=== PATIENT | female | born 1970 | race Caucasian/White ===

== ENCOUNTER 2020-12-10 13:50 | Inpatient (IN) ==
[2020-12-10] MEDS ORDERED: Naloxone 0.4 MG/ML INJ IVP PRN (19:07)
[2020-12-10] MEDS: Dexamethasone Sodium Phos/PF 10 MG/ML VIAL IVP SCH (20:27)
[2020-12-10] MEDS: Ipratropium 1 PUFF INHALER IH SCH (22:49)
[2020-12-10] MEDS: Gabapentin 300 MG CAPSULE PO SCH (23:30)
[2020-12-11 01:38] LABS: Basophils % 0.3 %; Hematocrit 37.3 % (35.3-44.9); Hemoglobin 12.8 g/dL (11.5-15.4); Immature Granulocytes % 1.3 % (0-4); Lymphocytes # 0.8 K/mcL (0.6-4.6); Mean Corpuscular HGB Conc 34.3 g/dL (31.6-35.5); Mean Corpuscular Hemoglobin 29.1 pg (28.0-33.3); Mean Corpuscular Volume 84.8 fL (83.0-100.0); Mean Platelet Volume 9.4 fL (9.4-12.4); Monocytes # 0.4 K/mcL (0.0-1.3); Monocytes % 3.8 %; Neutrophils # 8.3 K/mcL (1.6-8.9); Platelet Count 344 K/mcL (140-400); Red Cell Distribution Width 12.7 % (11.5-14.5); Segmented Neutrophils % 86.6 %; White Blood Count 9.6 K/mcL (4.3-11.1)
[2020-12-11 01:42] LABS: Albumin 3.3 g/dL (3.5-5.7); Bilirubin,Direct 0.1 mg/dL (0.0-0.2); Bilirubin,Indirect 0.3 mg/dL (0.0-1.0); Bilirubin,Total 0.4 mg/dL (0.3-1.0); Globulin 3.2 g/dL (2.4-3.5); Total Protein 6.5 g/dL (6.4-8.9)
[2020-12-11 01:43] LABS: BUN/Creatinine Ratio 18 (6-26); Blood Urea Nitrogen 11 mg/dL (6-20); Calcium 8.6 mg/dL (8.6-10.3); Carbon Dioxide 26 mEq/L (23-29); Chloride 94 mEq/L (98-107); Glucose 112 mg/dL (70-105); Magnesium 2.4 mg/dL (1.6-2.6); Osmolality,Calculated 274 (280-300); Potassium 3.7 mEq/L (3.5-5.1); Sodium 132 mEq/L (136-145); eGFR For African Americans > 60 (> 60); eGFR For Non-African Americans > 60 (> 60)
[2020-12-11] MEDS: Ipratropium 1 PUFF INHALER IH SCH ×4 (03:45→20:10)
[2020-12-11] MEDS ORDERED: *HR* Enoxaparin 40 MG/0.4 ML SYRINGE SQ SCH (06:00)
[2020-12-11] MEDS: Dexamethasone Sodium Phos/PF 10 MG/ML VIAL IVP SCH (07:59)
[2020-12-11] MEDS: BuPROPion XL (24 HR) 150 MG TABLET PO SCH (07:59)
[2020-12-11] MEDS: Gabapentin 300 MG CAPSULE PO SCH (08:00)
[2020-12-11] MEDS: Loratadine 10 MG TABLET PO SCH (08:56)
[2020-12-11] MEDS: Cholecalciferol (D-3) 1,000 UNIT (25MCG) TABLET PO SCH (08:57)
[2020-12-11] MEDS: *HR* Enoxaparin 40 MG/0.4 ML SYRINGE SQ SCH (16:30)
[2020-12-11] MEDS: levoFLOXacin 750 MG/150 ML 750 MG/150 ML BAG IVPB SCH (16:30)
[2020-12-11] MEDS: Furosemide 40 MG/4 ML VIAL IVP SCH (16:31)
[2020-12-12 02:28] LABS: Basophils % 0.5 %; Hematocrit 35.9 % (35.3-44.9); Hemoglobin 12.2 g/dL (11.5-15.4); Immature Granulocytes % 1.8 % (0-4); Lymphocytes # 0.6 K/mcL (0.6-4.6); Lymphocytes % 6.9 %; Mean Corpuscular Volume 85.5 fL (83.0-100.0); Mean Platelet Volume 9.1 fL (9.4-12.4); Monocytes # 0.4 K/mcL (0.0-1.3); Neutrophils # 7.2 K/mcL (1.6-8.9); Platelet Count 360 K/mcL (140-400); Red Cell Distribution Width 12.8 % (11.5-14.5); Segmented Neutrophils % 85.8 %; White Blood Count 8.4 K/mcL (4.3-11.1)
[2020-12-12 02:45] LABS: BUN/Creatinine Ratio 21 (6-26); Blood Urea Nitrogen 16 mg/dL (6-20); Calcium 8.6 mg/dL (8.6-10.3); Carbon Dioxide 31 mEq/L (23-29); Chloride 93 mEq/L (98-107); Glucose 116 mg/dL (70-105); Magnesium 2.2 mg/dL (1.6-2.6); Osmolality,Calculated 280 (280-300); Phosphorous 2.9 mg/dL (2.7-4.5); Potassium 3.3 mEq/L (3.5-5.1); Sodium 134 mEq/L (136-145); eGFR For African Americans > 60 (> 60); eGFR For Non-African Americans > 60 (> 60)
[2020-12-12] MEDS: Ipratropium 1 PUFF INHALER IH SCH ×4 (03:33→20:31)
[2020-12-12] MEDS: *HR* Enoxaparin 40 MG/0.4 ML SYRINGE SQ SCH ×2 (05:47→17:37)
[2020-12-12] MEDS ORDERED: tiZANidine 4 MG TABLET PO PRN (07:24)
[2020-12-12] MEDS: Gabapentin 300 MG CAPSULE PO SCH (09:31)
[2020-12-12] MEDS: Cholecalciferol (D-3) 1,000 UNIT (25MCG) TABLET PO SCH (09:31)
[2020-12-12] MEDS: Furosemide 40 MG/4 ML VIAL IVP SCH (09:31)
[2020-12-12] MEDS: BuPROPion XL (24 HR) 150 MG TABLET PO SCH (09:32)
[2020-12-12] MEDS: Loratadine 10 MG TABLET PO SCH (09:32)
[2020-12-12] MEDS: AZELASTINE HCL OP SCH ×2 (10:10→19:43)
[2020-12-12] MEDS: levoFLOXacin 750 MG/150 ML 750 MG/150 ML BAG IVPB SCH (17:38)
[2020-12-13 02:55] LABS: Basophils % 0.4 %; Hematocrit 36.6 % (35.3-44.9); Hemoglobin 12.2 g/dL (11.5-15.4); Immature Granulocytes % 2.3 % (0-4); Lymphocytes # 1.1 K/mcL (0.6-4.6); Lymphocytes % 14.6 %; Mean Corpuscular HGB Conc 33.3 g/dL (31.6-35.5); Mean Corpuscular Hemoglobin 28.4 pg (28.0-33.3); Mean Corpuscular Volume 85.1 fL (83.0-100.0); Mean Platelet Volume 8.9 fL (9.4-12.4); Monocytes # 0.2 K/mcL (0.0-1.3); Monocytes % 3.1 %; Platelet Count 381 K/mcL (140-400); Red Cell Distribution Width 12.8 % (11.5-14.5); Segmented Neutrophils % 79.6 %; White Blood Count 7.5 K/mcL (4.3-11.1)
[2020-12-13 03:11] LABS: BUN/Creatinine Ratio 19 (6-26); Blood Urea Nitrogen 13 mg/dL (6-20); Calcium 8.4 mg/dL (8.6-10.3); Carbon Dioxide 33 mEq/L (23-29); Chloride 93 mEq/L (98-107); Glucose 102 mg/dL (70-105); Magnesium 2.1 mg/dL (1.6-2.6); Osmolality,Calculated 282 (280-300); Potassium 3.5 mEq/L (3.5-5.1); Sodium 136 mEq/L (136-145); eGFR For African Americans > 60 (> 60); eGFR For Non-African Americans > 60 (> 60)
[2020-12-13] MEDS: Ipratropium 1 PUFF INHALER IH SCH ×4 (04:10→21:20)
[2020-12-13] MEDS: *HR* Enoxaparin 40 MG/0.4 ML SYRINGE SQ SCH ×2 (04:55→18:46)
[2020-12-13] MEDS: Furosemide 40 MG/4 ML VIAL IVP SCH (10:26)
[2020-12-13] MEDS: BuPROPion XL (24 HR) 150 MG TABLET PO SCH (10:26)
[2020-12-13] MEDS: Cholecalciferol (D-3) 1,000 UNIT (25MCG) TABLET PO SCH (10:27)
[2020-12-13] MEDS: Loratadine 10 MG TABLET PO SCH (10:27)
[2020-12-13] MEDS: AZELASTINE HCL OP SCH ×2 (10:27→22:03)
[2020-12-13] MEDS: Gabapentin 300 MG CAPSULE PO SCH (10:27)
[2020-12-13] MEDS: levoFLOXacin 750 MG/150 ML 750 MG/150 ML BAG IVPB SCH (18:45)
[2020-12-14] MEDS: Ipratropium 1 PUFF INHALER IH SCH ×4 (04:19→19:55)
[2020-12-14 05:14] LABS: Basophils % 0.3 %; Eosinophils % 0.2 %; Hematocrit 37.5 % (35.3-44.9); Hemoglobin 12.6 g/dL (11.5-15.4); Immature Granulocytes % 2.3 % (0-4); Lymphocytes # 1.1 K/mcL (0.6-4.6); Lymphocytes % 11.7 %; Mean Corpuscular HGB Conc 33.6 g/dL (31.6-35.5); Mean Corpuscular Volume 86.2 fL (83.0-100.0); Mean Platelet Volume 9.1 fL (9.4-12.4); Monocytes # 0.2 K/mcL (0.0-1.3); Monocytes % 1.8 %; Neutrophils # 7.9 K/mcL (1.6-8.9); Platelet Count 325 K/mcL (140-400); Red Blood Count 4.35 M/mcL (3.82-4.97); Red Cell Distribution Width 12.7 % (11.5-14.5); Segmented Neutrophils % 83.7 %; White Blood Count 9.4 K/mcL (4.3-11.1)
[2020-12-14 05:33] LABS: BUN/Creatinine Ratio 23 (6-26); Blood Urea Nitrogen 15 mg/dL (6-20); Calcium 8.4 mg/dL (8.6-10.3); Carbon Dioxide 32 mEq/L (23-29); Chloride 91 mEq/L (98-107); Glucose 92 mg/dL (70-105); Osmolality,Calculated 278 (280-300); Phosphorous 2.6 mg/dL (2.7-4.5); Potassium 3.4 mEq/L (3.5-5.1); Sodium 134 mEq/L (136-145); eGFR For African Americans > 60 (> 60); eGFR For Non-African Americans > 60 (> 60)
[2020-12-14] MEDS: *HR* Enoxaparin 40 MG/0.4 ML SYRINGE SQ SCH (06:59)
[2020-12-14] MEDS ORDERED: *HR* Heparin 5,000 UNIT/ML VIAL IVP PRN (08:18)
[2020-12-14] MEDS ORDERED: *HR* Heparin 5,000 UNIT/ML VIAL IVP ONE (08:18)
[2020-12-14] MEDS: BuPROPion XL (24 HR) 150 MG TABLET PO SCH (08:36)
[2020-12-14] MEDS: Furosemide 40 MG/4 ML VIAL IVP SCH (08:36)
[2020-12-14] MEDS: Gabapentin 300 MG CAPSULE PO SCH (08:36)
[2020-12-14] MEDS: Cholecalciferol (D-3) 1,000 UNIT (25MCG) TABLET PO SCH (08:37)
[2020-12-14] MEDS: Loratadine 10 MG TABLET PO SCH (08:37)
[2020-12-14] MEDS: AZELASTINE HCL OP SCH ×2 (08:37→20:50)
[2020-12-14 08:49] LABS: ABG Base Excess 10 mEq/L (-2 to 3); ABG HCO3 33 mEq/L (21-27); ABG Oxygen Saturation 84 % (95-98); ABG PCO2 38 mmHg (35-45); ABG PH 7.55 pH Units (7.32-7.45); ABG PO2 42 mmHg (85-104); ABG TCO2 34 mEq/L (20-26)
[2020-12-14 10:16] LABS: Hemoglobin 13.6 g/dL (11.5-15.4); Mean Corpuscular Hemoglobin 29.3 pg (28.0-33.3); Mean Corpuscular Volume 86.2 fL (83.0-100.0); Mean Platelet Volume 9.1 fL (9.4-12.4); Platelet Count 383 K/mcL (140-400); Red Blood Count 4.64 M/mcL (3.82-4.97); Red Cell Distribution Width 12.8 % (11.5-14.5); White Blood Count 12.3 K/mcL (4.3-11.1)
[2020-12-14 10:24] LABS: Heparin anti-factor XA UFH 0.24 IU/mL (0.30-0.70)
[2020-12-14 10:25] LABS: INR 1.4; Prothrombin Time 15.5 Seconds (9.4-12.1)
[2020-12-14] MEDS: Pantoprazole 40 MG VIAL IVP SCH ×2 (10:42→10:56)
[2020-12-14] MEDS: Heparin 25,000UNIT/250ML 1/2NS 25,000 UNIT/250 ML IV.SOLN IVC SCH (10:43)
[2020-12-14 15:46] LABS: ABG Base Excess 11 mEq/L (-2 to 3); ABG HCO3 35 mEq/L (21-27); ABG Oxygen Saturation 87 % (95-98); ABG PCO2 43 mmHg (35-45); ABG PH 7.52 pH Units (7.32-7.45); ABG PO2 48 mmHg (85-104); ABG TCO2 36 mEq/L (20-26)
[2020-12-14] MEDS ORDERED: Morphine Sulfate 2 MG/ML SYRINGE IVP ONE (15:46)
[2020-12-14] MEDS: levoFLOXacin 750 MG/150 ML 750 MG/150 ML BAG IVPB SCH (16:25)
[2020-12-15] MEDS: Morphine Sulfate 2 MG/ML SYRINGE IVP PRN ×4 (01:20→22:12)
[2020-12-15] MEDS: Ipratropium 1 PUFF INHALER IH SCH ×4 (03:50→20:10)
[2020-12-15 04:54] LABS: Basophils % 0.3 %; Eosinophils # 0.1 K/mcL (0.0-0.6); Eosinophils % 0.5 %; Hematocrit 37.7 % (35.3-44.9); Hemoglobin 12.5 g/dL (11.5-15.4); Immature Granulocytes % 3.5 % (0-4); Lymphocytes # 1.4 K/mcL (0.6-4.6); Lymphocytes % 11.3 %; Mean Corpuscular HGB Conc 33.2 g/dL (31.6-35.5); Mean Corpuscular Hemoglobin 28.8 pg (28.0-33.3); Mean Corpuscular Volume 86.9 fL (83.0-100.0); Mean Platelet Volume 9.3 fL (9.4-12.4); Monocytes # 0.3 K/mcL (0.0-1.3); Monocytes % 2.3 %; Platelet Count 368 K/mcL (140-400); Red Blood Count 4.34 M/mcL (3.82-4.97); Red Cell Distribution Width 12.6 % (11.5-14.5); Segmented Neutrophils % 82.1 %; White Blood Count 12.2 K/mcL (4.3-11.1)
[2020-12-15 05:13] LABS: BUN/Creatinine Ratio 25 (6-26); Blood Urea Nitrogen 17 mg/dL (6-20); Calcium 8.5 mg/dL (8.6-10.3); Carbon Dioxide 34 mEq/L (23-29); Chloride 90 mEq/L (98-107); Glucose 77 mg/dL (70-105); Magnesium 2.1 mg/dL (1.6-2.6); Osmolality,Calculated 280 (280-300); Potassium 3.2 mEq/L (3.5-5.1); Sodium 135 mEq/L (136-145); eGFR For African Americans > 60 (> 60); eGFR For Non-African Americans > 60 (> 60)
[2020-12-15] MEDS: Cholecalciferol (D-3) 1,000 UNIT (25MCG) TABLET PO SCH (07:30)
[2020-12-15] MEDS: Gabapentin 300 MG CAPSULE PO SCH (07:30)
[2020-12-15] MEDS: Loratadine 10 MG TABLET PO SCH (07:30)
[2020-12-15] MEDS: AZELASTINE HCL OP SCH (07:30)
[2020-12-15] MEDS: BuPROPion XL (24 HR) 150 MG TABLET PO SCH (07:30)
[2020-12-15] MEDS: Pantoprazole 40 MG VIAL IVP SCH (09:08)
[2020-12-15] MEDS: Furosemide 40 MG/4 ML VIAL IVP SCH (09:09)
[2020-12-15] MEDS: Heparin 25,000UNIT/250ML 1/2NS 25,000 UNIT/250 ML IV.SOLN IVC SCH (10:02)
[2020-12-15] MEDS: levoFLOXacin 750 MG/150 ML 750 MG/150 ML BAG IVPB SCH (18:13)
[2020-12-15] MEDS: Melatonin 3 MG TABLET PO PRN (22:13)
[2020-12-15] MEDS: *HR* Heparin 5,000 UNIT/ML VIAL IVP PRN (23:29)
[2020-12-16] MEDS: Morphine Sulfate 2 MG/ML SYRINGE IVP PRN ×2 (02:22→06:32)
[2020-12-16] MEDS: Ipratropium 1 PUFF INHALER IH SCH ×4 (03:45→21:43)
[2020-12-16] MEDS: Heparin 25,000UNIT/250ML 1/2NS 25,000 UNIT/250 ML IV.SOLN IVC SCH ×2 (04:10→20:32)
[2020-12-16 06:08] LABS: Basophils % 0.3 %; Eosinophils # 0.2 K/mcL (0.0-0.6); Eosinophils % 1.5 %; Hematocrit 40.3 % (35.3-44.9); Hemoglobin 13.7 g/dL (11.5-15.4); Immature Granulocytes % 2.1 % (0-4); Lymphocytes # 1.4 K/mcL (0.6-4.6); Lymphocytes % 9.6 %; Mean Corpuscular Hemoglobin 29.5 pg (28.0-33.3); Mean Corpuscular Volume 86.7 fL (83.0-100.0); Mean Platelet Volume 9.4 fL (9.4-12.4); Monocytes # 0.3 K/mcL (0.0-1.3); Neutrophils # 12.5 K/mcL (1.6-8.9); Platelet Count 419 K/mcL (140-400); Red Blood Count 4.65 M/mcL (3.82-4.97); Red Cell Distribution Width 12.9 % (11.5-14.5); Segmented Neutrophils % 84.5 %; White Blood Count 14.7 K/mcL (4.3-11.1)
[2020-12-16 06:24] LABS: BUN/Creatinine Ratio 27 (6-26); Blood Urea Nitrogen 18 mg/dL (6-20); Calcium 8.8 mg/dL (8.6-10.3); Carbon Dioxide 32 mEq/L (23-29); Chloride 91 mEq/L (98-107); Glucose 81 mg/dL (70-105); Magnesium 2.2 mg/dL (1.6-2.6); Osmolality,Calculated 281 (280-300); Phosphorous 3.3 mg/dL (2.7-4.5); Potassium 3.3 mEq/L (3.5-5.1); Sodium 135 mEq/L (136-145); eGFR For African Americans > 60 (> 60); eGFR For Non-African Americans > 60 (> 60)
[2020-12-16] MEDS: Pantoprazole 40 MG VIAL IVP SCH (08:43)
[2020-12-16] MEDS: Furosemide 40 MG/4 ML VIAL IVP SCH (08:43)
[2020-12-16] MEDS: Dexamethasone Sodium Phos/PF 10 MG/ML VIAL IVP SCH (08:43)
[2020-12-16] MEDS: Loratadine 10 MG TABLET PO SCH (08:48)
[2020-12-16] MEDS: BuPROPion XL (24 HR) 150 MG TABLET PO SCH (08:48)
[2020-12-16] MEDS: Gabapentin 300 MG CAPSULE PO SCH (08:48)
[2020-12-16] MEDS: Cholecalciferol (D-3) 1,000 UNIT (25MCG) TABLET PO SCH (08:48)
[2020-12-16] MEDS: Metoprolol XL (24 HR) Succ 25 MG TAB.ER.24H PO SCH (08:53)
[2020-12-16] MEDS: *HR* Heparin 5,000 UNIT/ML VIAL IVP PRN (13:23)
[2020-12-16 13:33] LABS: ABG Base Excess 8 mEq/L (-2 to 3); ABG HCO3 31 mEq/L (21-27); ABG Oxygen Saturation 96 % (95-98); ABG PCO2 38 mmHg (35-45); ABG PH 7.52 pH Units (7.32-7.45); ABG PO2 73 mmHg (85-104); ABG TCO2 32 mEq/L (20-26); Blood Gas Modality CPAP/PS; Blood Gas Pressure Support 12 cm H2O
[2020-12-16] MEDS: levoFLOXacin 750 MG/150 ML 750 MG/150 ML BAG IVPB SCH (17:43)
[2020-12-17 01:49] LABS: Basophils # 0.1 K/mcL (0.0-0.2); Basophils % 0.4 %; Eosinophils % 0.1 %; Hematocrit 39.1 % (35.3-44.9); Hemoglobin 13.3 g/dL (11.5-15.4); Immature Granulocytes % 2.5 % (0-4); Lymphocytes # 1.7 K/mcL (0.6-4.6); Lymphocytes % 10.4 %; Mean Corpuscular Hemoglobin 29.6 pg (28.0-33.3); Mean Corpuscular Volume 86.9 fL (83.0-100.0); Mean Platelet Volume 9.6 fL (9.4-12.4); Monocytes # 0.3 K/mcL (0.0-1.3); Monocytes % 1.7 %; Neutrophils # 14.1 K/mcL (1.6-8.9); Platelet Count 418 K/mcL (140-400); Red Cell Distribution Width 12.8 % (11.5-14.5); Segmented Neutrophils % 84.9 %; White Blood Count 16.6 K/mcL (4.3-11.1)
[2020-12-17 01:54] LABS: BUN/Creatinine Ratio 36 (6-26); Blood Urea Nitrogen 26 mg/dL (6-20); Calcium 8.9 mg/dL (8.6-10.3); Carbon Dioxide 28 mEq/L (23-29); Chloride 91 mEq/L (98-107); Glucose 119 mg/dL (70-105); Magnesium 1.9 mg/dL (1.6-2.6); Osmolality,Calculated 278 (280-300); Potassium 3.4 mEq/L (3.5-5.1); Sodium 131 mEq/L (136-145); eGFR For African Americans > 60 (> 60); eGFR For Non-African Americans > 60 (> 60)
[2020-12-17] MEDS: Ipratropium 1 PUFF INHALER IH SCH ×4 (03:48→20:24)
[2020-12-17] MEDS: Morphine Sulfate 2 MG/ML SYRINGE IVP PRN (06:17)
[2020-12-17] MEDS: Loratadine 10 MG TABLET PO SCH (07:55)
[2020-12-17] MEDS: BuPROPion XL (24 HR) 150 MG TABLET PO SCH (07:55)
[2020-12-17] MEDS: Metoprolol XL (24 HR) Succ 25 MG TAB.ER.24H PO SCH (07:55)
[2020-12-17] MEDS: Cholecalciferol (D-3) 1,000 UNIT (25MCG) TABLET PO SCH (07:55)
[2020-12-17] MEDS: Gabapentin 300 MG CAPSULE PO SCH (07:55)
[2020-12-17] MEDS: Dexamethasone Sodium Phos/PF 10 MG/ML VIAL IVP SCH (07:56)
[2020-12-17] MEDS: Pantoprazole 40 MG VIAL IVP SCH (07:56)
[2020-12-17] MEDS: Furosemide 40 MG/4 ML VIAL IVP SCH (07:56)
[2020-12-17] MEDS ORDERED: Isovue-370 500 ML BOTTLE IVP ONE (08:21)
[2020-12-17] MEDS: Heparin 25,000UNIT/250ML 1/2NS 25,000 UNIT/250 ML IV.SOLN IVC SCH (10:57)
[2020-12-17] MEDS: levoFLOXacin 750 MG/150 ML 750 MG/150 ML BAG IVPB SCH (16:49)
[2020-12-18] MEDS ORDERED: *HR* LORazepam 2 MG/ML VIAL IVP ONE (02:32)
[2020-12-18 02:40] LABS: Basophils # 0.1 K/mcL (0.0-0.2); Basophils % 0.4 %; Eosinophils % 0.1 %; Hematocrit 39.3 % (35.3-44.9); Hemoglobin 13.1 g/dL (11.5-15.4); Immature Granulocytes % 2.7 % (0-4); Lymphocytes # 2.3 K/mcL (0.6-4.6); Lymphocytes % 11.7 %; Mean Corpuscular HGB Conc 33.3 g/dL (31.6-35.5); Mean Corpuscular Hemoglobin 28.9 pg (28.0-33.3); Mean Corpuscular Volume 86.8 fL (83.0-100.0); Mean Platelet Volume 9.7 fL (9.4-12.4); Monocytes # 0.4 K/mcL (0.0-1.3); Monocytes % 1.8 %; Neutrophils # 16.3 K/mcL (1.6-8.9); Platelet Count 358 K/mcL (140-400); Red Blood Count 4.53 M/mcL (3.82-4.97); Red Cell Distribution Width 12.8 % (11.5-14.5); Segmented Neutrophils % 83.3 %; White Blood Count 19.5 K/mcL (4.3-11.1)
[2020-12-18 02:52] LABS: Fibrinogen 683 mg/dL (169-393)
[2020-12-18 02:56] LABS: D-Dimer 2313 ng/mLFEU (0-500)
[2020-12-18 03:01] LABS: Alanine Aminotransferase 14 Units/L (7-52); Alkaline Phosphatase 74 Units/L (34-104); Aspartate Amino Transferase 20 Units/L (13-39); BUN/Creatinine Ratio 31 (6-26); Bilirubin,Total 0.6 mg/dL (0.3-1.0); Blood Urea Nitrogen 23 mg/dL (6-20); Carbon Dioxide 30 mEq/L (23-29); Chloride 94 mEq/L (98-107); Globulin 3.1 g/dL (2.4-3.5); Glucose 100 mg/dL (70-105); Lactate Dehydrogenase 647 Units/L (140-271); Magnesium 1.9 mg/dL (1.6-2.6); Osmolality,Calculated 282 (280-300); Phosphorous 3.5 mg/dL (2.7-4.5); Potassium 3.5 mEq/L (3.5-5.1); Sodium 134 mEq/L (136-145); Total Protein 6.1 g/dL (6.4-8.9); eGFR For African Americans > 60 (> 60); eGFR For Non-African Americans > 60 (> 60)
[2020-12-18] MEDS: Heparin 25,000UNIT/250ML 1/2NS 25,000 UNIT/250 ML IV.SOLN IVC SCH ×2 (03:09→13:16)
[2020-12-18] MEDS: *HR* Heparin 5,000 UNIT/ML VIAL IVP PRN (03:11)
[2020-12-18 03:18] LABS: Ferritin 585 ng/mL (10-120)
[2020-12-18] MEDS: Ipratropium 1 PUFF INHALER IH SCH ×4 (04:08→19:43)
[2020-12-18] MEDS ORDERED: Furosemide 20 MG TABLET PO SCH (09:00)
[2020-12-18] MEDS: Pantoprazole 40 MG VIAL IVP SCH (10:18)
[2020-12-18] MEDS: Dexamethasone Sodium Phos/PF 10 MG/ML VIAL IVP SCH (10:19)
[2020-12-18] MEDS: Metoprolol XL (24 HR) Succ 50 MG TAB.ER.24H PO SCH (10:23)
[2020-12-18] MEDS: Cholecalciferol (D-3) 1,000 UNIT (25MCG) TABLET PO SCH (10:23)
[2020-12-18] MEDS: Gabapentin 300 MG CAPSULE PO SCH (10:23)
[2020-12-18] MEDS: BuPROPion XL (24 HR) 150 MG TABLET PO SCH (10:23)
[2020-12-18] MEDS: Loratadine 10 MG TABLET PO SCH (10:23)
[2020-12-18] MEDS: Morphine Sulfate 2 MG/ML SYRINGE IVP PRN ×2 (11:31→21:57)
[2020-12-18] MEDS: Furosemide 20 MG/2 ML VIAL IVP SCH (16:18)
[2020-12-18] MEDS: *HR* Enoxaparin 40 MG/0.4 ML SYRINGE SQ SCH (21:52)
[2020-12-19] MEDS: Ipratropium 1 PUFF INHALER IH SCH ×4 (04:00→20:33)
[2020-12-19] MEDS: Morphine Sulfate 2 MG/ML SYRINGE IVP PRN ×3 (04:11→22:32)
[2020-12-19 05:05] LABS: Basophils % 0.2 %; Eosinophils % 0.1 %; Hematocrit 37.4 % (35.3-44.9); Hemoglobin 12.7 g/dL (11.5-15.4); Immature Granulocytes % 2.3 % (0-4); Lymphocytes % 11.4 %; Mean Corpuscular Hemoglobin 29.6 pg (28.0-33.3); Mean Corpuscular Volume 87.2 fL (83.0-100.0); Mean Platelet Volume 9.9 fL (9.4-12.4); Monocytes # 0.3 K/mcL (0.0-1.3); Neutrophils # 14.5 K/mcL (1.6-8.9); Platelet Count 339 K/mcL (140-400); Red Blood Count 4.29 M/mcL (3.82-4.97); Red Cell Distribution Width 13.1 % (11.5-14.5); White Blood Count 17.2 K/mcL (4.3-11.1)
[2020-12-19 05:28] LABS: BUN/Creatinine Ratio 32 (6-26); Blood Urea Nitrogen 22 mg/dL (6-20); Calcium 9.1 mg/dL (8.6-10.3); Carbon Dioxide 30 mEq/L (23-29); Chloride 97 mEq/L (98-107); Glucose 105 mg/dL (70-105); Magnesium 2.1 mg/dL (1.6-2.6); Osmolality,Calculated 288 (280-300); Phosphorous 3.9 mg/dL (2.7-4.5); Potassium 3.8 mEq/L (3.5-5.1); Sodium 137 mEq/L (136-145); eGFR For African Americans > 60 (> 60); eGFR For Non-African Americans > 60 (> 60)
[2020-12-19] MEDS: Furosemide 20 MG/2 ML VIAL IVP SCH (09:42)
[2020-12-19] MEDS: BuPROPion XL (24 HR) 150 MG TABLET PO SCH (09:42)
[2020-12-19] MEDS: Loratadine 10 MG TABLET PO SCH (09:43)
[2020-12-19] MEDS: *HR* Enoxaparin 40 MG/0.4 ML SYRINGE SQ SCH ×2 (09:43→22:31)
[2020-12-19] MEDS: Cholecalciferol (D-3) 1,000 UNIT (25MCG) TABLET PO SCH (09:43)
[2020-12-19] MEDS: Gabapentin 300 MG CAPSULE PO SCH (09:43)
[2020-12-19] MEDS: Metoprolol XL (24 HR) Succ 50 MG TAB.ER.24H PO SCH (09:43)
[2020-12-19] MEDS: Dexamethasone Sodium Phos/PF 10 MG/ML VIAL IVP SCH (09:43)
[2020-12-19] MEDS: Pantoprazole 40 MG VIAL IVP SCH (09:43)
[2020-12-19] MEDS: ALPRAZolam 0.25 MG TABLET PO PRN (11:15)
[2020-12-19] MEDS: Magic Mouthwash 10 ML UD Cup PO SCH ×2 (11:16→19:50)
[2020-12-20] MEDS: ALPRAZolam 0.25 MG TABLET PO PRN ×2 (01:39→20:34)
[2020-12-20] MEDS: Morphine Sulfate 2 MG/ML SYRINGE IVP PRN ×3 (02:41→16:28)
[2020-12-20] MEDS: Ipratropium 1 PUFF INHALER IH SCH ×4 (04:12→20:33)
[2020-12-20 06:39] LABS: Basophils # 0.1 K/mcL (0.0-0.2); Basophils % 0.3 %; Eosinophils # 0.1 K/mcL (0.0-0.6); Eosinophils % 0.2 %; Hematocrit 38.7 % (35.3-44.9); Hemoglobin 12.8 g/dL (11.5-15.4); Immature Granulocytes % 1.3 % (0-4); Lymphocytes # 1.9 K/mcL (0.6-4.6); Mean Corpuscular HGB Conc 33.1 g/dL (31.6-35.5); Mean Corpuscular Hemoglobin 29.1 pg (28.0-33.3); Mean Platelet Volume 9.9 fL (9.4-12.4); Monocytes # 0.4 K/mcL (0.0-1.3); Monocytes % 1.7 %; Platelet Count 314 K/mcL (140-400); Red Cell Distribution Width 13.2 % (11.5-14.5); Segmented Neutrophils % 88.5 %; White Blood Count 23.8 K/mcL (4.3-11.1)
[2020-12-20 06:42] LABS: Neutrophils # 21.1 K/mcL (1.6-8.9)
[2020-12-20 06:54] LABS: Platelet Estimate Normal (Normal)
[2020-12-20 07:01] LABS: BUN/Creatinine Ratio 33 (6-26); Blood Urea Nitrogen 22 mg/dL (6-20); Calcium 9.1 mg/dL (8.6-10.3); Carbon Dioxide 32 mEq/L (23-29); Chloride 98 mEq/L (98-107); Glucose 92 mg/dL (70-105); Lactate Dehydrogenase 794 Units/L (140-271); Magnesium 1.9 mg/dL (1.6-2.6); Osmolality,Calculated 289 (280-300); Phosphorous 3.5 mg/dL (2.7-4.5); Potassium 4.2 mEq/L (3.5-5.1); Sodium 138 mEq/L (136-145); eGFR For African Americans > 60 (> 60); eGFR For Non-African Americans > 60 (> 60)
[2020-12-20 07:19] LABS: Ferritin 528 ng/mL (10-120)
[2020-12-20] MEDS: Gabapentin 300 MG CAPSULE PO SCH (08:49)
[2020-12-20] MEDS: Metoprolol XL (24 HR) Succ 50 MG TAB.ER.24H PO SCH (08:50)
[2020-12-20] MEDS: Dexamethasone Sodium Phos/PF 10 MG/ML VIAL IVP SCH (08:50)
[2020-12-20] MEDS: Furosemide 20 MG/2 ML VIAL IVP SCH (08:50)
[2020-12-20] MEDS: Loratadine 10 MG TABLET PO SCH (08:50)
[2020-12-20] MEDS: BuPROPion XL (24 HR) 150 MG TABLET PO SCH (08:50)
[2020-12-20] MEDS: Cholecalciferol (D-3) 1,000 UNIT (25MCG) TABLET PO SCH (08:50)
[2020-12-20] MEDS: *HR* Enoxaparin 40 MG/0.4 ML SYRINGE SQ SCH ×2 (08:51→20:37)
[2020-12-20] MEDS: Pantoprazole 40 MG VIAL IVP SCH (08:51)
[2020-12-20] MEDS: Magic Mouthwash 10 ML UD Cup PO SCH ×3 (08:51→16:29)
[2020-12-20] MEDS: GuaiFENesin/Dextromethorphan TABLET PO PRN (13:19)
[2020-12-20] MEDS: Melatonin 3 MG TABLET PO PRN (20:34)
[2020-12-21] MEDS: GuaiFENesin/Dextromethorphan TABLET PO PRN ×2 (02:30→20:59)
[2020-12-21] MEDS: Ipratropium 1 PUFF INHALER IH SCH ×4 (03:42→20:12)
[2020-12-21] MEDS: Morphine Sulfate 2 MG/ML SYRINGE IVP PRN ×2 (04:00→08:52)
[2020-12-21] MEDS: Cholecalciferol (D-3) 1,000 UNIT (25MCG) TABLET PO SCH (08:48)
[2020-12-21] MEDS: Gabapentin 300 MG CAPSULE PO SCH (08:48)
[2020-12-21] MEDS: ALPRAZolam 0.25 MG TABLET PO PRN (08:48)
[2020-12-21] MEDS: Loratadine 10 MG TABLET PO SCH (08:48)
[2020-12-21] MEDS: Metoprolol XL (24 HR) Succ 50 MG TAB.ER.24H PO SCH (08:49)
[2020-12-21] MEDS: BuPROPion XL (24 HR) 150 MG TABLET PO SCH (08:49)
[2020-12-21] MEDS: *HR* Enoxaparin 40 MG/0.4 ML SYRINGE SQ SCH ×2 (08:50→21:00)
[2020-12-21] MEDS: Furosemide 20 MG/2 ML VIAL IVP SCH (08:50)
[2020-12-21] MEDS: Pantoprazole 40 MG VIAL IVP SCH (08:51)
[2020-12-21] MEDS: Magic Mouthwash 10 ML UD Cup PO SCH ×3 (08:54→17:24)
[2020-12-21 10:30] LABS: Magnesium 1.9 mg/dL (1.6-2.6); Phosphorous 3.9 mg/dL (2.7-4.5)
[2020-12-21 15:08] LABS: Basophils # 0.1 K/mcL (0.0-0.2); Basophils % 0.3 %; Eosinophils % 0.2 %; Hemoglobin 12.5 g/dL (11.5-15.4); Immature Granulocytes % 1.4 % (0-4); Lymphocytes % 5.1 %; Mean Corpuscular HGB Conc 32.9 g/dL (31.6-35.5); Mean Platelet Volume 9.9 fL (9.4-12.4); Monocytes # 0.2 K/mcL (0.0-1.3); Monocytes % 1.2 %; Neutrophils # 18.3 K/mcL (1.6-8.9); Platelet Count 265 K/mcL (140-400); Red Blood Count 4.31 M/mcL (3.82-4.97); Red Cell Distribution Width 13.3 % (11.5-14.5); Segmented Neutrophils % 91.8 %; White Blood Count 19.9 K/mcL (4.3-11.1)
[2020-12-21 15:10] LABS: Mean Corpuscular Volume 88.2 fL (83.0-100.0)
[2020-12-21] MEDS ORDERED: HYDROcodone BIT/Homatropine LQ 5 MG/5 ML UDC PO ONE (20:11)
[2020-12-21] MEDS: Melatonin 3 MG TABLET PO PRN (20:59)
[2020-12-22] MEDS: ALPRAZolam 0.25 MG TABLET PO PRN ×2 (01:59→09:39)
[2020-12-22] MEDS: Morphine Sulfate 2 MG/ML SYRINGE IVP PRN ×4 (01:59→21:15)
[2020-12-22] MEDS: Ipratropium 1 PUFF INHALER IH SCH ×4 (04:04→20:14)
[2020-12-22 05:44] LABS: Basophils # 0.1 K/mcL (0.0-0.2); Basophils % 0.4 %; Eosinophils # 0.1 K/mcL (0.0-0.6); Eosinophils % 0.6 %; Hematocrit 40.2 % (35.3-44.9); Hemoglobin 13.1 g/dL (11.5-15.4); Immature Granulocytes % 1.5 % (0-4); Lymphocytes # 1.9 K/mcL (0.6-4.6); Lymphocytes % 10.1 %; Mean Corpuscular HGB Conc 32.6 g/dL (31.6-35.5); Mean Corpuscular Hemoglobin 29.6 pg (28.0-33.3); Mean Corpuscular Volume 90.7 fL (83.0-100.0); Monocytes # 0.3 K/mcL (0.0-1.3); Monocytes % 1.7 %; Neutrophils # 16.3 K/mcL (1.6-8.9); Platelet Count 277 K/mcL (140-400); Red Blood Count 4.43 M/mcL (3.82-4.97); Red Cell Distribution Width 13.5 % (11.5-14.5); Segmented Neutrophils % 85.7 %; White Blood Count 19.1 K/mcL (4.3-11.1)
[2020-12-22 05:59] LABS: Alanine Aminotransferase 19 Units/L (7-52); Albumin 3.1 g/dL (3.5-5.7); Albumin/Globulin Ratio 0.9 (1.1-2.2); Alkaline Phosphatase 99 Units/L (34-104); Aspartate Amino Transferase 21 Units/L (13-39); BUN/Creatinine Ratio 38 (6-26); Bilirubin,Total 0.6 mg/dL (0.3-1.0); Blood Urea Nitrogen 29 mg/dL (6-20); Calcium 9.3 mg/dL (8.6-10.3); Carbon Dioxide 32 mEq/L (23-29); Chloride 96 mEq/L (98-107); Globulin 3.5 g/dL (2.4-3.5); Glucose 86 mg/dL (70-105); Osmolality,Calculated 289 (280-300); Potassium 4.8 mEq/L (3.5-5.1); Sodium 137 mEq/L (136-145); Total Protein 6.6 g/dL (6.4-8.9); eGFR For African Americans > 60 (> 60); eGFR For Non-African Americans > 60 (> 60)
[2020-12-22] MEDS: BuPROPion XL (24 HR) 150 MG TABLET PO SCH (09:39)
[2020-12-22] MEDS: *HR* Enoxaparin 40 MG/0.4 ML SYRINGE SQ SCH ×2 (09:39→21:15)
[2020-12-22] MEDS: GuaiFENesin/Dextromethorphan TABLET PO PRN (09:40)
[2020-12-22] MEDS: Metoprolol XL (24 HR) Succ 50 MG TAB.ER.24H PO SCH (09:40)
[2020-12-22] MEDS: Loratadine 10 MG TABLET PO SCH (09:40)
[2020-12-22] MEDS: Furosemide 20 MG/2 ML VIAL IVP SCH (09:40)
[2020-12-22] MEDS: Gabapentin 300 MG CAPSULE PO SCH (09:41)
[2020-12-22] MEDS: Pantoprazole 40 MG VIAL IVP SCH (09:41)
[2020-12-22] MEDS: Cholecalciferol (D-3) 1,000 UNIT (25MCG) TABLET PO SCH (09:41)
[2020-12-22] MEDS: Magic Mouthwash 10 ML UD Cup PO SCH ×3 (09:41→15:01)
[2020-12-22] MEDS: *HR* LORazepam 2 MG/ML VIAL IVP PRN (22:47)
[2020-12-23 01:24] LABS: Basophils % 0.3 %; Eosinophils # 0.1 K/mcL (0.0-0.6); Eosinophils % 0.5 %; Hematocrit 39.5 % (35.3-44.9); Immature Granulocytes % 1.3 % (0-4); Lymphocytes # 2.1 K/mcL (0.6-4.6); Lymphocytes % 15.5 %; Mean Corpuscular HGB Conc 32.9 g/dL (31.6-35.5); Mean Corpuscular Hemoglobin 29.4 pg (28.0-33.3); Mean Corpuscular Volume 89.4 fL (83.0-100.0); Mean Platelet Volume 9.8 fL (9.4-12.4); Monocytes # 0.3 K/mcL (0.0-1.3); Monocytes % 2.2 %; Neutrophils # 10.7 K/mcL (1.6-8.9); Platelet Count 280 K/mcL (140-400); Red Blood Count 4.42 M/mcL (3.82-4.97); Red Cell Distribution Width 13.4 % (11.5-14.5); Segmented Neutrophils % 80.2 %; White Blood Count 13.4 K/mcL (4.3-11.1)
[2020-12-23 01:40] LABS: BUN/Creatinine Ratio 48 (6-26); Blood Urea Nitrogen 32 mg/dL (6-20); Calcium 9.2 mg/dL (8.6-10.3); Carbon Dioxide 28 mEq/L (23-29); Chloride 98 mEq/L (98-107); Glucose 83 mg/dL (70-105); Lactate Dehydrogenase 586 Units/L (140-271); Magnesium 2.4 mg/dL (1.6-2.6); Osmolality,Calculated 290 (280-300); Phosphorous 3.8 mg/dL (2.7-4.5); Potassium 4.6 mEq/L (3.5-5.1); Sodium 137 mEq/L (136-145); eGFR For African Americans > 60 (> 60); eGFR For Non-African Americans > 60 (> 60)
[2020-12-23 01:57] LABS: Ferritin 558 ng/mL (10-120)
[2020-12-23 02:04] LABS: D-Dimer 12644 ng/mLFEU (0-500)
[2020-12-23 02:05] LABS: Fibrinogen 776 mg/dL (169-393)
[2020-12-23] MEDS: Ipratropium 1 PUFF INHALER IH SCH ×4 (02:55→20:18)
[2020-12-23] MEDS: Morphine Sulfate 2 MG/ML SYRINGE IVP PRN ×4 (04:32→21:44)
[2020-12-23] MEDS: *HR* LORazepam 2 MG/ML VIAL IVP PRN ×3 (06:44→21:44)
[2020-12-23] MEDS: BuPROPion XL (24 HR) 150 MG TABLET PO SCH (08:57)
[2020-12-23] MEDS: *HR* Enoxaparin 40 MG/0.4 ML SYRINGE SQ SCH ×2 (08:57→21:44)
[2020-12-23] MEDS: Magic Mouthwash 10 ML UD Cup PO SCH ×3 (08:57→16:53)
[2020-12-23] MEDS: Cholecalciferol (D-3) 1,000 UNIT (25MCG) TABLET PO SCH (08:58)
[2020-12-23] MEDS: Metoprolol XL (24 HR) Succ 50 MG TAB.ER.24H PO SCH (08:58)
[2020-12-23] MEDS: Gabapentin 300 MG CAPSULE PO SCH (08:59)
[2020-12-23] MEDS: Furosemide 20 MG/2 ML VIAL IVP SCH (08:59)
[2020-12-23] MEDS: Loratadine 10 MG TABLET PO SCH (08:59)
[2020-12-23] MEDS: Dexamethasone Sodium Phos/PF 10 MG/ML VIAL IVP SCH (08:59)
[2020-12-23] MEDS: Pantoprazole 40 MG VIAL IVP SCH (08:59)
[2020-12-23] MEDS ORDERED: Saliva Stimulant 44.3ml BOTTLE PO PRN (10:07)
[2020-12-24] MEDS: Morphine Sulfate 2 MG/ML SYRINGE IVP PRN ×2 (02:34→08:54)
[2020-12-24 02:36] LABS: Eosinophils % 0.4 %; Hematocrit 40.8 % (35.3-44.9); Immature Granulocytes % 1.3 % (0-4); Lymphocytes % 17.4 %; Mean Corpuscular HGB Conc 31.9 g/dL (31.6-35.5); Mean Corpuscular Hemoglobin 28.8 pg (28.0-33.3); Mean Corpuscular Volume 90.5 fL (83.0-100.0); Mean Platelet Volume 10.3 fL (9.4-12.4); Monocytes % 2.4 %; Platelet Count 288 K/mcL (140-400); Red Blood Count 4.51 M/mcL (3.82-4.97); Red Cell Distribution Width 13.2 % (11.5-14.5); Segmented Neutrophils % 78.1 %; White Blood Count 13.5 K/mcL (4.3-11.1)
[2020-12-24 02:37] LABS: Basophils # 0.1 K/mcL (0.0-0.2); Basophils % 0.4 %; Eosinophils # 0.1 K/mcL (0.0-0.6); Lymphocytes # 2.4 K/mcL (0.6-4.6); Monocytes # 0.3 K/mcL (0.0-1.3); Neutrophils # 10.6 K/mcL (1.6-8.9)
[2020-12-24 03:02] LABS: BUN/Creatinine Ratio 55 (6-26); Blood Urea Nitrogen 34 mg/dL (6-20); Calcium 9.3 mg/dL (8.6-10.3); Carbon Dioxide 27 mEq/L (23-29); Chloride 100 mEq/L (98-107); Glucose 80 mg/dL (70-105); Lactate Dehydrogenase 600 Units/L (140-271); Osmolality,Calculated 291 (280-300); Potassium 4.4 mEq/L (3.5-5.1); Sodium 137 mEq/L (136-145); eGFR For African Americans > 60 (> 60); eGFR For Non-African Americans > 60 (> 60)
[2020-12-24 03:14] LABS: Ferritin 625 ng/mL (10-120)
[2020-12-24 03:22] LABS: Fibrinogen 705 mg/dL (169-393)
[2020-12-24 03:23] LABS: D-Dimer 8189 ng/mLFEU (0-500)
[2020-12-24] MEDS: *HR* LORazepam 2 MG/ML VIAL IVP PRN (03:51)
[2020-12-24] MEDS: Ipratropium 1 PUFF INHALER IH SCH ×4 (04:12→20:34)
[2020-12-24] MEDS: *HR* Enoxaparin 40 MG/0.4 ML SYRINGE SQ SCH ×2 (08:53→20:19)
[2020-12-24] MEDS: Pantoprazole 40 MG VIAL IVP SCH (08:53)
[2020-12-24] MEDS: Dexamethasone Sodium Phos/PF 10 MG/ML VIAL IVP SCH (08:54)
[2020-12-24] MEDS: Dexmedetomidine HCl 400 MCG/100 ML MLS IVC SCH ×2 (10:20→22:57)
[2020-12-24] MEDS: Magic Mouthwash 10 ML UD Cup PO SCH ×3 (11:08→16:13)
[2020-12-24] MEDS: Loratadine 10 MG TABLET PO SCH (11:37)
[2020-12-24] MEDS: Gabapentin 300 MG CAPSULE PO SCH (11:37)
[2020-12-24] MEDS: Furosemide 20 MG TABLET PO SCH (11:37)
[2020-12-24] MEDS: BuPROPion XL (24 HR) 150 MG TABLET PO SCH (11:38)
[2020-12-24] MEDS: Cholecalciferol (D-3) 1,000 UNIT (25MCG) TABLET PO SCH (11:38)
[2020-12-24] MEDS: Metoprolol XL (24 HR) Succ 50 MG TAB.ER.24H PO SCH (11:38)
[2020-12-25] MEDS: *HR* LORazepam 2 MG/ML VIAL IVP PRN ×2 (02:51→10:18)
[2020-12-25] MEDS: Ipratropium 1 PUFF INHALER IH SCH ×4 (03:41→20:18)
[2020-12-25 03:52] LABS: ABG Base Excess 1 mEq/L (-2 to 3); ABG HCO3 24 mEq/L (21-27); ABG Oxygen Saturation 89 % (95-98); ABG PCO2 31 mmHg (35-45); ABG PH 7.49 pH Units (7.32-7.45); ABG PO2 50 mmHg (85-104); ABG TCO2 25 mEq/L (20-26)
[2020-12-25 04:00] LABS: BUN/Creatinine Ratio 43 (6-26); Blood Urea Nitrogen 35 mg/dL (6-20); Carbon Dioxide 26 mEq/L (23-29); Chloride 100 mEq/L (98-107); Glucose 196 mg/dL (70-105); Magnesium 2.4 mg/dL (1.6-2.6); Osmolality,Calculated 293 (280-300); Potassium 4.6 mEq/L (3.5-5.1); Sodium 135 mEq/L (136-145); eGFR For African Americans > 60 (> 60); eGFR For Non-African Americans > 60 (> 60)
[2020-12-25] MEDS: Morphine Sulfate 2 MG/ML SYRINGE IVP PRN (05:05)
[2020-12-25] MEDS ORDERED: *HR* LORazepam 2 MG/ML VIAL IVP ONE ×2 (05:49→06:15)
[2020-12-25 06:04] LABS: ABG Base Excess 1 mEq/L (-2 to 3); ABG HCO3 24 mEq/L (21-27); ABG Oxygen Saturation 87 % (95-98); ABG PCO2 31 mmHg (35-45); ABG PH 7.49 pH Units (7.32-7.45); ABG PO2 48 mmHg (85-104); ABG TCO2 25 mEq/L (20-26); Blood Gas Modality avaps; Blood Gas VT 450 cc
[2020-12-25] MEDS: Dexmedetomidine HCl 400 MCG/100 ML MLS IVC SCH ×3 (07:30→19:54)
[2020-12-25] MEDS: Furosemide 20 MG TABLET PO SCH (09:13)
[2020-12-25] MEDS: Magic Mouthwash 10 ML UD Cup PO SCH ×3 (09:13→16:29)
[2020-12-25] MEDS: Loratadine 10 MG TABLET PO SCH (09:13)
[2020-12-25] MEDS: Gabapentin 300 MG CAPSULE PO SCH (09:14)
[2020-12-25] MEDS: Metoprolol XL (24 HR) Succ 50 MG TAB.ER.24H PO SCH (09:14)
[2020-12-25] MEDS: Cholecalciferol (D-3) 1,000 UNIT (25MCG) TABLET PO SCH (09:14)
[2020-12-25] MEDS: BuPROPion XL (24 HR) 150 MG TABLET PO SCH (09:14)
[2020-12-25] MEDS: Pantoprazole 40 MG VIAL IVP SCH (10:18)
[2020-12-25] MEDS: Dexamethasone Sodium Phos/PF 10 MG/ML VIAL IVP SCH (10:19)
[2020-12-25] MEDS: *HR* Enoxaparin 40 MG/0.4 ML SYRINGE SQ SCH ×2 (10:19→19:54)
[2020-12-26] MEDS: Dexmedetomidine HCl 400 MCG/100 ML MLS IVC SCH ×4 (01:51→20:42)
[2020-12-26 03:09] LABS: Basophils # 0.1 K/mcL (0.0-0.2); Basophils % 0.4 %; Eosinophils # 0.1 K/mcL (0.0-0.6); Hematocrit 39.5 % (35.3-44.9); Hemoglobin 12.4 g/dL (11.5-15.4); Immature Granulocytes % 0.8 % (0-4); Lymphocytes # 1.7 K/mcL (0.6-4.6); Lymphocytes % 14.6 %; Mean Corpuscular HGB Conc 31.4 g/dL (31.6-35.5); Mean Corpuscular Hemoglobin 28.6 pg (28.0-33.3); Mean Corpuscular Volume 91.2 fL (83.0-100.0); Mean Platelet Volume 10.4 fL (9.4-12.4); Monocytes # 0.3 K/mcL (0.0-1.3); Monocytes % 2.3 %; Neutrophils # 9.4 K/mcL (1.6-8.9); Platelet Count 259 K/mcL (140-400); Red Blood Count 4.33 M/mcL (3.82-4.97); Red Cell Distribution Width 13.4 % (11.5-14.5); Segmented Neutrophils % 80.9 %; White Blood Count 11.6 K/mcL (4.3-11.1)
[2020-12-26 03:48] LABS: BUN/Creatinine Ratio 47 (6-26); Blood Urea Nitrogen 38 mg/dL (6-20); Calcium 8.5 mg/dL (8.6-10.3); Carbon Dioxide 24 mEq/L (23-29); Chloride 109 mEq/L (98-107); Ferritin 533 ng/mL (10-120); Glucose 92 mg/dL (70-105); Magnesium 2.4 mg/dL (1.6-2.6); Osmolality,Calculated 307 (280-300); Phosphorous 4.2 mg/dL (2.7-4.5); Potassium 4.2 mEq/L (3.5-5.1); Sodium 144 mEq/L (136-145); eGFR For African Americans > 60 (> 60); eGFR For Non-African Americans > 60 (> 60)
[2020-12-26] MEDS: Ipratropium 1 PUFF INHALER IH SCH ×4 (04:10→23:30)
[2020-12-26] MEDS: *HR* LORazepam 2 MG/ML VIAL IVP PRN ×2 (05:38→21:00)
[2020-12-26 05:54] LABS: Fibrinogen 610 mg/dL (169-393)
[2020-12-26 06:00] LABS: D-Dimer 5138 ng/mLFEU (0-500)
[2020-12-26] MEDS: Magic Mouthwash 10 ML UD Cup PO SCH ×3 (07:24→15:49)
[2020-12-26] MEDS: Loratadine 10 MG TABLET PO SCH (08:07)
[2020-12-26] MEDS: Gabapentin 300 MG CAPSULE PO SCH (08:08)
[2020-12-26] MEDS: BuPROPion XL (24 HR) 150 MG TABLET PO SCH (08:08)
[2020-12-26] MEDS: Furosemide 20 MG TABLET PO SCH (08:08)
[2020-12-26] MEDS: Metoprolol XL (24 HR) Succ 50 MG TAB.ER.24H PO SCH (08:08)
[2020-12-26] MEDS: Cholecalciferol (D-3) 1,000 UNIT (25MCG) TABLET PO SCH (08:08)
[2020-12-26] MEDS: Dexamethasone Sodium Phos/PF 10 MG/ML VIAL IVP SCH (08:14)
[2020-12-26] MEDS: *HR* Enoxaparin 40 MG/0.4 ML SYRINGE SQ SCH ×2 (08:14→20:54)
[2020-12-26] MEDS: Pantoprazole 40 MG VIAL IVP SCH (08:14)
[2020-12-26] MEDS: Morphine Sulfate 2 MG/ML SYRINGE IVP PRN ×2 (10:01→20:43)
[2020-12-26] MEDS: *HR* Metoprolol 5 MG/5 ML VIAL IVP PRN (10:19)
[2020-12-27] MEDS: Morphine Sulfate 2 MG/ML SYRINGE IVP PRN ×3 (01:32→12:54)
[2020-12-27] MEDS: Dexmedetomidine HCl 400 MCG/100 ML MLS IVC SCH ×4 (03:08→22:37)
[2020-12-27] MEDS: Ipratropium 1 PUFF INHALER IH SCH ×4 (03:39→20:34)
[2020-12-27 06:28] LABS: Basophils # 0.1 K/mcL (0.0-0.2); Basophils % 0.4 %; Eosinophils # 0.4 K/mcL (0.0-0.6); Eosinophils % 2.9 %; Hematocrit 44.2 % (35.3-44.9); Hemoglobin 13.7 g/dL (11.5-15.4); Immature Granulocytes % 0.6 % (0-4); Lymphocytes # 1.7 K/mcL (0.6-4.6); Lymphocytes % 12.6 %; Mean Corpuscular Hemoglobin 28.5 pg (28.0-33.3); Mean Corpuscular Volume 92.1 fL (83.0-100.0); Mean Platelet Volume 10.4 fL (9.4-12.4); Monocytes # 0.3 K/mcL (0.0-1.3); Monocytes % 2.1 %; Neutrophils # 11.1 K/mcL (1.6-8.9); Platelet Count 280 K/mcL (140-400); Red Cell Distribution Width 13.6 % (11.5-14.5); Segmented Neutrophils % 81.4 %; White Blood Count 13.6 K/mcL (4.3-11.1)
[2020-12-27 06:51] LABS: Alanine Aminotransferase 16 Units/L (7-52); Albumin 3.5 g/dL (3.5-5.7); Albumin/Globulin Ratio 0.9 (1.1-2.2); Alkaline Phosphatase 85 Units/L (34-104); Aspartate Amino Transferase 21 Units/L (13-39); BUN/Creatinine Ratio 57 (6-26); Bilirubin,Total 0.6 mg/dL (0.3-1.0); Blood Urea Nitrogen 43 mg/dL (6-20); Calcium 9.7 mg/dL (8.6-10.3); Carbon Dioxide 24 mEq/L (23-29); Chloride 109 mEq/L (98-107); Globulin 3.7 g/dL (2.4-3.5); Glucose 104 mg/dL (70-105); Lactate Dehydrogenase 631 Units/L (140-271); Magnesium 2.8 mg/dL (1.6-2.6); Osmolality,Calculated 309 (280-300); Phosphorous 4.3 mg/dL (2.7-4.5); Potassium 4.5 mEq/L (3.5-5.1); Sodium 144 mEq/L (136-145); Total Protein 7.2 g/dL (6.4-8.9); eGFR For African Americans > 60 (> 60); eGFR For Non-African Americans > 60 (> 60)
[2020-12-27] MEDS: *HR* LORazepam 2 MG/ML VIAL IVP PRN ×2 (06:52→23:59)
[2020-12-27 07:14] LABS: Fibrinogen 550 mg/dL (169-393)
[2020-12-27 07:21] LABS: D-Dimer 3308 ng/mLFEU (0-500)
[2020-12-27] MEDS: Dexamethasone Sodium Phos/PF 10 MG/ML VIAL IVP SCH (07:56)
[2020-12-27] MEDS: *HR* Enoxaparin 40 MG/0.4 ML SYRINGE SQ SCH ×2 (07:56→21:30)
[2020-12-27] MEDS: Pantoprazole 40 MG VIAL IVP SCH (07:56)
[2020-12-27] MEDS: Magic Mouthwash 10 ML UD Cup PO SCH ×3 (08:05→16:52)
[2020-12-27] MEDS: Metoprolol XL (24 HR) Succ 50 MG TAB.ER.24H PO SCH (08:13)
[2020-12-27] MEDS: Furosemide 20 MG TABLET PO SCH (08:13)
[2020-12-27] MEDS: Gabapentin 300 MG CAPSULE PO SCH (08:13)
[2020-12-27] MEDS: Loratadine 10 MG TABLET PO SCH (08:13)
[2020-12-27] MEDS: BuPROPion XL (24 HR) 150 MG TABLET PO SCH (08:14)
[2020-12-27] MEDS: Cholecalciferol (D-3) 1,000 UNIT (25MCG) TABLET PO SCH (08:14)
[2020-12-27 09:31] LABS: Triglycerides 278 mg/dL (< 150)
[2020-12-27] MEDS ORDERED: Dextrose Gel 15 GM/37.5 ML TUBE PO PRN ×2 (10:08)
[2020-12-27] MEDS ORDERED: *HR* Dextrose 50 % in Water (Syg) 50 ML SYRINGE IVP PRN (10:08)
[2020-12-27] MEDS ORDERED: D5% in Water 1,000 ML IVC PRN (10:08)
[2020-12-27] MEDS: *HR* Metoprolol 5 MG/5 ML VIAL IVP PRN (10:43)
[2020-12-27] MEDS: Insulin LISPRO 300 UNITS/3 ML VIAL SUBQ SCH ×3 (11:28→21:29)
[2020-12-27] MEDS ORDERED: D10% in Water 500 ML IVC PRN (12:30)
[2020-12-27] MEDS ORDERED: VITAMIN K IVC SCH (17:00)
[2020-12-27] MEDS ORDERED: [UNRECOGNIZED DRUG - OTHER] IVC SCH (17:00)
[2020-12-27] MEDS ORDERED: CLINIMIX IVC SCH (17:00)
[2020-12-27] MEDS ORDERED: MVI IVC SCH (17:00)
[2020-12-27 17:53] LABS: Adenovirus F 40/41 PCR Not detected (Not detect); Astrovirus PCR Not detected (Not detect); C.difficile Toxin A/B Gene PCR Not detected (Not detect); Campylobacter by PCR Not detected (Not detect); Cryptosporidium by PCR Not detected (Not detect); Cyclospora cayetanensis PCR Not detected (Not detect); E. coli O157 by PCR Not detected (Not detect); Entamoeba histolytica PCR Not detected (Not detect); Enteroaggregative E.coli(EAEC) Not detected (Not detect); Enteropathogenic E.coli(EPEC) Not detected (Not detect); Enterotoxigenic E.coli (ETEC) Not detected (Not detect); Giardia lamblia PCR Not detected (Not detect); Norovirus GI/GII PCR Not detected (Not detect); Plesiomonas shigelloides PCR Not detected (Not detect); Rotavirus A PCR Not detected (Not detect); Salmonella PCR Not detected (Not detect); Sapovirus PCR Not detected (Not detect); Shig/EnteroinvasiveE coli EIEC Not detected (Not detect); Shigalike tox-prod E coli STEC Not detected (Not detect); Vibrio PCR Not detected (Not detect); Vibrio cholerae PCR Not detected (Not detect); Yersinia enterocolitica PCR Not detected (Not detect)
[2020-12-28] MEDS: Insulin LISPRO 300 UNITS/3 ML VIAL SUBQ SCH ×6 (01:25→20:34)
[2020-12-28] MEDS: Morphine Sulfate 2 MG/ML SYRINGE IVP PRN ×3 (03:29→17:57)
[2020-12-28 04:15] LABS: Hematocrit 44.2 % (35.3-44.9); Hemoglobin 13.7 g/dL (11.5-15.4); Mean Corpuscular Hemoglobin 28.5 pg (28.0-33.3); Mean Corpuscular Volume 91.9 fL (83.0-100.0); Mean Platelet Volume 10.6 fL (9.4-12.4); Platelet Count 301 K/mcL (140-400); Red Blood Count 4.81 M/mcL (3.82-4.97); Red Cell Distribution Width 13.6 % (11.5-14.5); White Blood Count 15.9 K/mcL (4.3-11.1)
[2020-12-28 04:35] LABS: Alanine Aminotransferase 13 Units/L (7-52); Albumin 3.1 g/dL (3.5-5.7); Albumin/Globulin Ratio 0.9 (1.1-2.2); Alkaline Phosphatase 79 Units/L (34-104); Aspartate Amino Transferase 16 Units/L (13-39); BUN/Creatinine Ratio 61 (6-26); Bilirubin,Total 0.5 mg/dL (0.3-1.0); Blood Urea Nitrogen 42 mg/dL (6-20); Calcium 8.8 mg/dL (8.6-10.3); Carbon Dioxide 26 mEq/L (23-29); Chloride 115 mEq/L (98-107); Globulin 3.4 g/dL (2.4-3.5); Glucose 116 mg/dL (70-105); Magnesium 2.5 mg/dL (1.6-2.6); Osmolality,Calculated 321 (280-300); Phosphorous 3.1 mg/dL (2.7-4.5); Potassium 4.6 mEq/L (3.5-5.1); Sodium 150 mEq/L (136-145); Total Protein 6.5 g/dL (6.4-8.9); eGFR For African Americans > 60 (> 60); eGFR For Non-African Americans > 60 (> 60)
[2020-12-28] MEDS: Ipratropium 1 PUFF INHALER IH SCH ×4 (04:37→20:17)
[2020-12-28] MEDS: Dexmedetomidine HCl 400 MCG/100 ML MLS IVC SCH ×3 (05:26→17:57)
[2020-12-28] MEDS: Magic Mouthwash 10 ML UD Cup PO SCH ×3 (07:31→17:56)
[2020-12-28] MEDS: Furosemide 20 MG TABLET PO SCH (09:08)
[2020-12-28] MEDS: Loratadine 10 MG TABLET PO SCH (09:08)
[2020-12-28] MEDS: Metoprolol XL (24 HR) Succ 50 MG TAB.ER.24H PO SCH (09:08)
[2020-12-28] MEDS: Gabapentin 300 MG CAPSULE PO SCH (09:08)
[2020-12-28] MEDS: Cholecalciferol (D-3) 1,000 UNIT (25MCG) TABLET PO SCH (09:09)
[2020-12-28] MEDS: BuPROPion XL (24 HR) 150 MG TABLET PO SCH (09:09)
[2020-12-28] MEDS: Dexamethasone Sodium Phos/PF 10 MG/ML VIAL IVP SCH (09:21)
[2020-12-28] MEDS: Pantoprazole 40 MG VIAL IVP SCH (09:21)
[2020-12-28] MEDS: *HR* Metoprolol 5 MG/5 ML VIAL IVP PRN ×2 (09:21→20:21)
[2020-12-28] MEDS: *HR* Enoxaparin 40 MG/0.4 ML SYRINGE SQ SCH ×2 (09:22→20:23)
[2020-12-28] MEDS: *HR* LORazepam 2 MG/ML VIAL IVP PRN ×2 (10:11→23:48)
[2020-12-28] MEDS ORDERED: MVI IVC SCH (17:00)
[2020-12-28] MEDS ORDERED: CLINIMIX IVC SCH (17:00)
[2020-12-28] MEDS ORDERED: VITAMIN K IVC SCH (17:00)
[2020-12-28] MEDS ORDERED: [UNRECOGNIZED DRUG - OTHER] IVC SCH (17:00)
[2020-12-28 17:06] LABS: Amorphous Sediment,Urine Few per hpf (None-Few); Bacteria,Urine Few per hpf (None-Few); Bilirubin,Urine Negative (Negative); Blood,Urine Moderate (Negative); Clarity,Urine Turbid (Clear); Color,Urine Light-Orange (Yellow); Glucose,Urine (UA) Normal (Normal); Ketones,Urine Negative (Negative); Leukocyte Esterase,Urine Large (Negative); Mucus,Urine Few per lpf (None-Few); Nitrite,Urine Positive (Negative); Protein,Urine 70 mg/dL (Neg-Trace); RBC,Urine 50-100 per hpf (0-3); Specific Gravity,Urine > 1.030 (1.010-1.025); Squamous Epithelial Cell,Urine Few per hpf (None-Few); WBC,Urine TNTC per hpf (0-3)
[2020-12-29] MEDS: Dexmedetomidine HCl 400 MCG/100 ML MLS IVC SCH ×4 (00:19→21:32)
[2020-12-29] MEDS: Morphine Sulfate 2 MG/ML SYRINGE IVP PRN ×2 (00:20→07:14)
[2020-12-29] MEDS: Insulin LISPRO 300 UNITS/3 ML VIAL SUBQ SCH ×7 (01:02→23:21)
[2020-12-29] MEDS: *HR* Metoprolol 5 MG/5 ML VIAL IVP PRN (03:12)
[2020-12-29] MEDS: Ipratropium 1 PUFF INHALER IH SCH ×4 (04:34→21:30)
[2020-12-29] MEDS ORDERED: Ondansetron 4 MG/2 ML VIAL IVP PRN (06:43)
[2020-12-29 06:45] LABS: Basophils # 0.1 K/mcL (0.0-0.2); Basophils % 0.4 %; Eosinophils # 0.7 K/mcL (0.0-0.6); Eosinophils % 3.5 %; Hemoglobin 14.2 g/dL (11.5-15.4); Immature Granulocytes % 0.6 % (0-4); Lymphocytes # 1.8 K/mcL (0.6-4.6); Lymphocytes % 9.8 %; Mean Corpuscular HGB Conc 30.9 g/dL (31.6-35.5); Mean Corpuscular Hemoglobin 28.4 pg (28.0-33.3); Mean Platelet Volume 11.1 fL (9.4-12.4); Monocytes # 0.5 K/mcL (0.0-1.3); Monocytes % 2.6 %; Neutrophils # 15.5 K/mcL (1.6-8.9); Platelet Count 171 K/mcL (140-400); Red Cell Distribution Width 13.8 % (11.5-14.5); Segmented Neutrophils % 83.1 %; White Blood Count 18.6 K/mcL (4.3-11.1)
[2020-12-29] MEDS: *HR* LORazepam 2 MG/ML VIAL IVP PRN (06:53)
[2020-12-29] MEDS ORDERED: Haloperidol Lactate 5 MG/ML VIAL IVP ONE (07:42)
[2020-12-29] MEDS ORDERED: Furosemide 40 MG/4 ML VIAL IVP ONE (07:43)
[2020-12-29] MEDS: Loratadine 10 MG TABLET PO SCH (07:48)
[2020-12-29] MEDS: Gabapentin 300 MG CAPSULE PO SCH (07:49)
[2020-12-29] MEDS: Cholecalciferol (D-3) 1,000 UNIT (25MCG) TABLET PO SCH (07:49)
[2020-12-29] MEDS: Metoprolol XL (24 HR) Succ 50 MG TAB.ER.24H PO SCH (07:49)
[2020-12-29] MEDS: BuPROPion XL (24 HR) 150 MG TABLET PO SCH (07:49)
[2020-12-29] MEDS: Magic Mouthwash 10 ML UD Cup PO SCH ×3 (09:34→16:32)
[2020-12-29] MEDS ORDERED: Furosemide 40 MG/4 ML VIAL ONE (10:10)
[2020-12-29] MEDS: Dexamethasone Sodium Phos/PF 10 MG/ML VIAL IVP SCH (10:15)
[2020-12-29] MEDS: Pantoprazole 40 MG VIAL IVP SCH (10:15)
[2020-12-29] MEDS: *HR* Enoxaparin 40 MG/0.4 ML SYRINGE SQ SCH ×2 (10:26→21:07)
[2020-12-29 10:39] LABS: Alanine Aminotransferase 29 Units/L (7-52); Albumin 3.2 g/dL (3.5-5.7); Albumin/Globulin Ratio 0.9 (1.1-2.2); Alkaline Phosphatase 119 Units/L (34-104); Aspartate Amino Transferase 33 Units/L (13-39); BUN/Creatinine Ratio 50 (6-26); Bilirubin,Total 0.8 mg/dL (0.3-1.0); Blood Urea Nitrogen 36 mg/dL (6-20); Calcium 9.1 mg/dL (8.6-10.3); Carbon Dioxide 26 mEq/L (23-29); Chloride 115 mEq/L (98-107); Globulin 3.6 g/dL (2.4-3.5); Glucose 127 mg/dL (70-105); Magnesium 2.4 mg/dL (1.6-2.6); Osmolality,Calculated 320 (280-300); Phosphorous 3.3 mg/dL (2.7-4.5); Potassium 3.6 mEq/L (3.5-5.1); Sodium 150 mEq/L (136-145); Total Protein 6.8 g/dL (6.4-8.9); eGFR For African Americans > 60 (> 60); eGFR For Non-African Americans > 60 (> 60)
[2020-12-29] MEDS ORDERED: *HR* Metoprolol 5 MG/5 ML VIAL IVP SCH (12:00)
[2020-12-29] MEDS ORDERED: levoFLOXacin 500 MG/100 ML 500 MG/100 ML BAG IVPB SCH (13:15)
[2020-12-29] MEDS ORDERED: Acetaminophen 325 MG TABLET PO PRN (15:14)
[2020-12-29] MEDS: *HR* Metoprolol 5 MG/5 ML VIAL IVP SCH ×2 (16:31→21:07)
[2020-12-29] MEDS ORDERED: Acetaminophen 650 MG RECTAL SUPP RC PRN (17:07)
[2020-12-30] MEDS: Dexmedetomidine HCl 400 MCG/100 ML MLS IVC SCH ×6 (02:05→23:44)
[2020-12-30] MEDS: *HR* Metoprolol 5 MG/5 ML VIAL IVP SCH ×4 (03:34→23:42)
[2020-12-30] MEDS: Insulin LISPRO 300 UNITS/3 ML VIAL SUBQ SCH ×6 (03:35→23:42)
[2020-12-30] MEDS: Ipratropium 1 PUFF INHALER IH SCH ×4 (04:07→21:33)
[2020-12-30 04:08] LABS: Basophils # 0.1 K/mcL (0.0-0.2); Basophils % 0.3 %; Eosinophils # 0.2 K/mcL (0.0-0.6); Eosinophils % 0.7 %; Hematocrit 48.6 % (35.3-44.9); Hemoglobin 15.7 g/dL (11.5-15.4); Immature Granulocytes % 0.8 % (0-4); Mean Corpuscular HGB Conc 32.3 g/dL (31.6-35.5); Mean Corpuscular Hemoglobin 29.5 pg (28.0-33.3); Mean Corpuscular Volume 91.4 fL (83.0-100.0); Mean Platelet Volume 11.1 fL (9.4-12.4); Monocytes # 0.5 K/mcL (0.0-1.3); Monocytes % 2.6 %; Neutrophils # 17.2 K/mcL (1.6-8.9); Platelet Count 290 K/mcL (140-400); Red Blood Count 5.32 M/mcL (3.82-4.97); Red Cell Distribution Width 13.9 % (11.5-14.5); Segmented Neutrophils % 81.6 %
[2020-12-30 04:25] LABS: VBG Ionized Calcium 1.17 mmol/L (1.15-1.35)
[2020-12-30 04:30] LABS: Albumin 3.2 g/dL (3.5-5.7); Albumin/Globulin Ratio 0.9 (1.1-2.2); Bilirubin,Total 0.9 mg/dL (0.3-1.0); Calcium 9.3 mg/dL (8.6-10.3); Globulin 3.6 g/dL (2.4-3.5); Magnesium 2.5 mg/dL (1.6-2.6); Phosphorous 4.7 mg/dL (2.7-4.5); Potassium 4.2 mEq/L (3.5-5.1); Total Protein 6.8 g/dL (6.4-8.9)
[2020-12-30] MEDS: Dexamethasone Sodium Phos/PF 10 MG/ML VIAL IVP SCH (08:55)
[2020-12-30] MEDS: Magic Mouthwash 10 ML UD Cup PO SCH ×3 (08:56→15:44)
[2020-12-30] MEDS: Pantoprazole 40 MG VIAL IVP SCH (08:56)
[2020-12-30] MEDS: cefTRIAXone 1,000 MG in Water for inj. (sterile) 10 ML IVP SCH (08:56)
[2020-12-30] MEDS: Loratadine 10 MG TABLET PO SCH (08:57)
[2020-12-30] MEDS: *HR* Enoxaparin 40 MG/0.4 ML SYRINGE SQ SCH ×2 (08:57→20:59)
[2020-12-30] MEDS: BuPROPion XL (24 HR) 150 MG TABLET PO SCH (08:58)
[2020-12-30] MEDS: Cholecalciferol (D-3) 1,000 UNIT (25MCG) TABLET PO SCH (08:58)
[2020-12-30] MEDS: Metoprolol XL (24 HR) Succ 50 MG TAB.ER.24H PO SCH (08:58)
[2020-12-30] MEDS: Gabapentin 300 MG CAPSULE PO SCH (08:58)
[2020-12-30] MEDS: *HR* LORazepam 2 MG/ML VIAL IVP PRN (20:59)
[2020-12-31] MEDS: Ipratropium 1 PUFF INHALER IH SCH ×4 (03:26→20:02)
[2020-12-31] MEDS: Insulin LISPRO 300 UNITS/3 ML VIAL SUBQ SCH ×5 (03:37→21:28)
[2020-12-31] MEDS: *HR* Metoprolol 5 MG/5 ML VIAL IVP SCH ×4 (03:37→21:31)
[2020-12-31] MEDS: Dexmedetomidine HCl 400 MCG/100 ML MLS IVC SCH ×5 (03:41→20:52)
[2020-12-31 04:40] LABS: Basophils % 0.2 %; Eosinophils # 0.1 K/mcL (0.0-0.6); Eosinophils % 0.3 %; Hematocrit 48.3 % (35.3-44.9); Hemoglobin 15.6 g/dL (11.5-15.4); Immature Granulocytes % 0.8 % (0-4); Lymphocytes # 2.5 K/mcL (0.6-4.6); Lymphocytes % 12.9 %; Mean Corpuscular HGB Conc 32.3 g/dL (31.6-35.5); Mean Corpuscular Hemoglobin 29.4 pg (28.0-33.3); Mean Corpuscular Volume 91.1 fL (83.0-100.0); Mean Platelet Volume 11.6 fL (9.4-12.4); Monocytes # 0.7 K/mcL (0.0-1.3); Monocytes % 3.5 %; Neutrophils # 16.1 K/mcL (1.6-8.9); Platelet Count 328 K/mcL (140-400); Red Cell Distribution Width 14.2 % (11.5-14.5); Segmented Neutrophils % 82.3 %; White Blood Count 19.5 K/mcL (4.3-11.1)
[2020-12-31 04:54] LABS: VBG Ionized Calcium 1.09 mmol/L (1.15-1.35)
[2020-12-31 05:01] LABS: Albumin 3.2 g/dL (3.5-5.7); Albumin/Globulin Ratio 0.9 (1.1-2.2); Bilirubin,Total 0.7 mg/dL (0.3-1.0); Calcium 9.4 mg/dL (8.6-10.3); Globulin 3.6 g/dL (2.4-3.5); Magnesium 2.9 mg/dL (1.6-2.6); Phosphorous 6.1 mg/dL (2.7-4.5); Potassium 4.3 mEq/L (3.5-5.1); Total Protein 6.8 g/dL (6.4-8.9)
[2020-12-31] MEDS: cefTRIAXone 1,000 MG in Water for inj. (sterile) 10 ML IVP SCH (07:37)
[2020-12-31] MEDS: Pantoprazole 40 MG VIAL IVP SCH (07:37)
[2020-12-31] MEDS: Magic Mouthwash 10 ML UD Cup PO SCH (07:37)
[2020-12-31] MEDS: *HR* Enoxaparin 40 MG/0.4 ML SYRINGE SQ SCH ×2 (07:38→21:48)
[2020-12-31] MEDS: Dexamethasone Sodium Phos/PF 10 MG/ML VIAL IVP SCH (07:38)
[2020-12-31 08:33] LABS: ABG Base Excess -4 mEq/L (-2 to 3); ABG HCO3 19 mEq/L (21-27); ABG Oxygen Saturation 90 % (95-98); ABG PCO2 30 mmHg (35-45); ABG PH 7.42 pH Units (7.32-7.45); ABG PO2 56 mmHg (85-104); ABG TCO2 20 mEq/L (20-26)
[2020-12-31] MEDS ORDERED: Artificial Tears SOLN 15 ML BOTTLE BOTH EYES PRN (09:20)
[2020-12-31] MEDS: Norepinephrine 4 MG/254 ML IV.SOLN IVC SCH ×3 (09:23→23:00)
[2020-12-31 11:14] LABS: ABG Base Excess -8 mEq/L (-2 to 3); ABG HCO3 21 mEq/L (21-27); ABG Oxygen Saturation 91 % (95-98); ABG PCO2 51 mmHg (35-45); ABG PH 7.22 pH Units (7.32-7.45); ABG PO2 75 mmHg (85-104); ABG TCO2 22 mEq/L (20-26); Blood Gas VT 400 cc
[2020-12-31] MEDS: FentaNYL (PF) 1,000 MCG/100 ML IV.SOLN IVC SCH ×2 (11:32→20:05)
[2020-12-31] MEDS: Artificial Tears SOLN 15 ML BOTTLE BOTH EYES SCH ×3 (11:36→21:25)
[2020-12-31] MEDS ORDERED: *HR* Etomidate 20 MG/10 ML AMPUL IVP ONE (11:47)
[2020-12-31] MEDS ORDERED: *HR* Rocuronium Bromide 50 MG/5 ML VIAL IVP ONE (11:47)
[2020-12-31] MEDS ORDERED: *HR* Succinylcholine 200 MG/10 ML VIAL IVP ONE (11:47)
[2020-12-31] MEDS ORDERED: *HR* Midazolam HCl 5 MG/5 ML VIAL IVP ONE (11:47)
[2020-12-31] MEDS: Cisatracurium 200 MG in 0.9 % Sodium Chloride 180 ML IVC SCH (13:34)
[2020-12-31 14:05] LABS: Hematocrit 50.5 % (35.3-44.9); Hemoglobin 15.5 g/dL (11.5-15.4); Mean Corpuscular HGB Conc 30.7 g/dL (31.6-35.5); Mean Corpuscular Hemoglobin 29.5 pg (28.0-33.3); Mean Corpuscular Volume 96.2 fL (83.0-100.0); Mean Platelet Volume 11.3 fL (9.4-12.4); Platelet Count 434 K/mcL (140-400); Red Blood Count 5.25 M/mcL (3.82-4.97); Red Cell Distribution Width 14.4 % (11.5-14.5); White Blood Count 22.7 K/mcL (4.3-11.1)
[2020-12-31] MEDS: Chlorhexidine Rinse 15 ML MOUTHWASH MM SCH ×2 (14:46→21:25)
[2020-12-31] MEDS: Midazolam HCl 50 MG/100 ML IV.SOLN IVC SCH (16:07)
[2020-12-31] MEDS ORDERED: Clinimix 5%-20% SOLUTION 2,000 ML with MVI, adult with vitamin K 10 ML, Sodium Acetat... IVC SCH ×2 (17:00)
[2021-01-01] MEDS: Insulin LISPRO 300 UNITS/3 ML VIAL SUBQ SCH ×7 (00:01→23:43)
[2021-01-01] MEDS: Artificial Tears SOLN 15 ML BOTTLE BOTH EYES SCH ×7 (00:01→23:27)
[2021-01-01] MEDS: Dexmedetomidine HCl 400 MCG/100 ML MLS IVC SCH ×2 (01:00→05:13)
[2021-01-01] MEDS: Cisatracurium 200 MG in 0.9 % Sodium Chloride 180 ML IVC SCH ×2 (01:12→13:11)
[2021-01-01] MEDS: Norepinephrine 4 MG/254 ML IV.SOLN IVC SCH ×8 (02:35→21:38)
[2021-01-01 03:30] LABS: Basophils # 0.1 K/mcL (0.0-0.2); Basophils % 0.3 %; Hematocrit 45.3 % (35.3-44.9); Immature Granulocytes % 1.8 % (0-4); Lymphocytes # 4.4 K/mcL (0.6-4.6); Lymphocytes % 20.5 %; Mean Corpuscular Hemoglobin 29.3 pg (28.0-33.3); Mean Corpuscular Volume 97.6 fL (83.0-100.0); Mean Platelet Volume 11.2 fL (9.4-12.4); Monocytes # 1.4 K/mcL (0.0-1.3); Monocytes % 6.6 %; Nucleated Red Blood Cells 0.8 /100 WBC (0); Platelet Count 389 K/mcL (140-400); Red Blood Count 4.64 M/mcL (3.82-4.97); Segmented Neutrophils % 70.8 %; White Blood Count 21.2 K/mcL (4.3-11.1)
[2021-01-01 03:31] LABS: Hemoglobin 13.6 g/dL (11.5-15.4)
[2021-01-01 03:33] LABS: VBG Ionized Calcium 1.11 mmol/L (1.15-1.35)
[2021-01-01 04:03] LABS: Alanine Aminotransferase 46 Units/L (7-52); Albumin 2.7 g/dL (3.5-5.7); Albumin/Globulin Ratio 0.9 (1.1-2.2); Alkaline Phosphatase 106 Units/L (34-104); Aspartate Amino Transferase 50 Units/L (13-39); BUN/Creatinine Ratio 33 (6-26); Bilirubin,Total 0.4 mg/dL (0.3-1.0); Blood Urea Nitrogen 124 mg/dL (6-20); Carbon Dioxide 21 mEq/L (23-29); Chloride 115 mEq/L (98-107); Glucose 146 mg/dL (70-105); Osmolality,Calculated 344 (280-300); Phosphorous 8.5 mg/dL (2.7-4.5); Potassium 5.5 mEq/L (3.5-5.1); Sodium 146 mEq/L (136-145); Total Protein 5.7 g/dL (6.4-8.9); eGFR For African Americans 15 (> 60); eGFR For Non-African Americans 13 (> 60)
[2021-01-01 04:10] LABS: Ferritin > 1500 ng/mL (10-120)
[2021-01-01] MEDS: Ipratropium 1 PUFF INHALER IH SCH ×4 (04:15→21:58)
[2021-01-01 04:28] LABS: ABG Base Excess -10 mEq/L (-2 to 3); ABG HCO3 20 mEq/L (21-27); ABG Oxygen Saturation 86 % (95-98); ABG PCO2 65 mmHg (35-45); ABG PO2 70 mmHg (85-104); ABG TCO2 22 mEq/L (20-26); Blood Gas VT 400 cc
[2021-01-01] MEDS: *HR* Metoprolol 5 MG/5 ML VIAL IVP SCH ×4 (05:36→21:38)
[2021-01-01] MEDS: FentaNYL (PF) 1,000 MCG/100 ML IV.SOLN IVC SCH ×2 (06:53→18:06)
[2021-01-01 07:10] LABS: Triglycerides 412 mg/dL (< 150)
[2021-01-01] MEDS ORDERED: Ringers Solution, Lactated 1,000 ML IVC ONE (07:36)
[2021-01-01] MEDS: Vasopressin 40 UNIT in D5% in Water 100 ML IVC SCH ×2 (07:48→21:30)
[2021-01-01] MEDS: Chlorhexidine Rinse 15 ML MOUTHWASH MM SCH ×2 (09:01→19:35)
[2021-01-01] MEDS: Pantoprazole 40 MG VIAL IVP SCH (09:02)
[2021-01-01] MEDS: cefTRIAXone 1,000 MG in Water for inj. (sterile) 10 ML IVP SCH (09:02)
[2021-01-01] MEDS: Sodium Bicarbonate 150 MEQ in D5% in Water 1,000 ML IVC SCH ×3 (10:40→23:28)
[2021-01-01 11:17] LABS: ABG Base Excess -3 mEq/L (-2 to 3); ABG HCO3 23 mEq/L (21-27); ABG Oxygen Saturation 77 % (95-98); ABG PCO2 47 mmHg (35-45); ABG PH 7.31 pH Units (7.32-7.45); ABG PO2 46 mmHg (85-104); ABG TCO2 25 mEq/L (20-26); Blood Gas Modality ASSIST CONTROL; Blood Gas VT 400 cc
[2021-01-01] MEDS: Lacri-Lube 3.5 GM TUBE BOTH EYES SCH ×2 (13:44→19:35)
[2021-01-01] MEDS: *HR* Heparin 5,000 UNIT/ML VIAL SQ SCH ×2 (13:44→21:38)
[2021-01-01 15:49] LABS: Calcium 7.6 mg/dL (8.6-10.3); Potassium 4.7 mEq/L (3.5-5.1)
[2021-01-01] MEDS ORDERED: Clinimix 5%-20% SOLUTION 2,000 ML with MVI, adult with vitamin K 10 ML, Sodium Acetat... IVC SCH ×2 (17:00)
[2021-01-01] MEDS: Midazolam HCl 50 MG/100 ML IV.SOLN IVC SCH (19:34)
[2021-01-02] MEDS: Norepinephrine 4 MG/254 ML IV.SOLN IVC SCH ×4 (03:14→23:57)
[2021-01-02] MEDS: Artificial Tears SOLN 15 ML BOTTLE BOTH EYES SCH ×5 (03:14→21:08)
[2021-01-02] MEDS: Cisatracurium 200 MG in 0.9 % Sodium Chloride 180 ML IVC SCH ×2 (03:14→16:51)
[2021-01-02] MEDS: Ipratropium 1 PUFF INHALER IH SCH ×4 (03:14→20:14)
[2021-01-02] MEDS: *HR* Metoprolol 5 MG/5 ML VIAL IVP SCH (03:15)
[2021-01-02] MEDS: Insulin LISPRO 300 UNITS/3 ML VIAL SUBQ SCH ×5 (03:30→21:08)
[2021-01-02 03:40] LABS: Basophils % 0.2 %; Eosinophils # 0.1 K/mcL (0.0-0.6); Eosinophils % 0.4 %; Hematocrit 33.4 % (35.3-44.9); Immature Granulocytes % 1.1 % (0-4); Lymphocytes # 2.5 K/mcL (0.6-4.6); Lymphocytes % 15.8 %; Mean Corpuscular HGB Conc 31.1 g/dL (31.6-35.5); Mean Corpuscular Hemoglobin 28.9 pg (28.0-33.3); Mean Corpuscular Volume 92.8 fL (83.0-100.0); Mean Platelet Volume 11.5 fL (9.4-12.4); Monocytes % 6.3 %; Neutrophils # 12.3 K/mcL (1.6-8.9); Nucleated Red Blood Cells 0.4 /100 WBC (0); Platelet Count 231 K/mcL (140-400); Red Cell Distribution Width 14.1 % (11.5-14.5); Segmented Neutrophils % 76.2 %; White Blood Count 16.1 K/mcL (4.3-11.1)
[2021-01-02 03:43] LABS: Hemoglobin 10.4 g/dL (11.5-15.4)
[2021-01-02 03:50] LABS: VBG Ionized Calcium 1.05 mmol/L (1.15-1.35)
[2021-01-02 03:52] LABS: ABG Base Excess 2 mEq/L (-2 to 3); ABG HCO3 28 mEq/L (21-27); ABG Oxygen Saturation 91 % (95-98); ABG PCO2 46 mmHg (35-45); ABG PH 7.39 pH Units (7.32-7.45); ABG PO2 63 mmHg (85-104); ABG TCO2 29 mEq/L (20-26); Blood Gas Modality ASSIST CONTROL; Blood Gas VT 400 cc
[2021-01-02] MEDS: FentaNYL (PF) 1,000 MCG/100 ML IV.SOLN IVC SCH ×3 (03:59→19:59)
[2021-01-02 04:02] LABS: Albumin 2.4 g/dL (3.5-5.7); Bilirubin,Total 0.4 mg/dL (0.3-1.0); Calcium 7.6 mg/dL (8.6-10.3); Globulin 2.5 g/dL (2.4-3.5); Magnesium 2.4 mg/dL (1.6-2.6); Potassium 3.9 mEq/L (3.5-5.1); Total Protein 4.9 g/dL (6.4-8.9)
[2021-01-02] MEDS: Calcium Gluconate 1gm/50mL 1 GM/50 ML BAG IVPB SCH ×4 (05:09→13:12)
[2021-01-02] MEDS: *HR* Heparin 5,000 UNIT/ML VIAL SQ SCH ×3 (05:11→21:09)
[2021-01-02] MEDS: Pantoprazole 40 MG VIAL IVP SCH ×2 (07:15→21:06)
[2021-01-02] MEDS: cefTRIAXone 1,000 MG in Water for inj. (sterile) 10 ML IVP SCH (07:16)
[2021-01-02] MEDS: Chlorhexidine Rinse 15 ML MOUTHWASH MM SCH ×2 (07:16→21:06)
[2021-01-02] MEDS: Lacri-Lube 3.5 GM TUBE BOTH EYES SCH ×2 (07:17→21:07)
[2021-01-02] MEDS ORDERED: *HR* Metoprolol 5 MG/5 ML VIAL IVP PRN (08:02)
[2021-01-02] MEDS: Midazolam HCl 50 MG/100 ML IV.SOLN IVC SCH (11:29)
[2021-01-02 12:30] LABS: VBG Ionized Calcium 1.06 mmol/L (1.15-1.35)
[2021-01-02 12:51] LABS: Hematocrit 31.7 % (35.3-44.9); Hemoglobin 9.7 g/dL (11.5-15.4)
[2021-01-02] MEDS: Sodium Bicarbonate 150 MEQ in D5% in Water 1,000 ML IVC SCH ×2 (13:03→23:57)
[2021-01-02] MEDS: Vasopressin 40 UNIT in D5% in Water 100 ML IVC SCH (16:52)
[2021-01-02] MEDS ORDERED: Clinimix E 5%-15% SOLUTION 2,000 ML with MVI, adult with vitamin K 10 ML IVC SCH (17:00)
[2021-01-03] MEDS: Artificial Tears SOLN 15 ML BOTTLE BOTH EYES SCH ×3 (00:10→08:39)
[2021-01-03] MEDS: Insulin LISPRO 300 UNITS/3 ML VIAL SUBQ SCH ×3 (00:10→08:39)
[2021-01-03] MEDS: FentaNYL (PF) 1,000 MCG/100 ML IV.SOLN IVC SCH (04:12)
[2021-01-03] MEDS: Ipratropium 1 PUFF INHALER IH SCH ×2 (04:25→07:33)
[2021-01-03] MEDS: *HR* Heparin 5,000 UNIT/ML VIAL SQ SCH (04:49)
[2021-01-03 05:38] LABS: ABG Base Excess 7 mEq/L (-2 to 3); ABG HCO3 34 mEq/L (21-27); ABG Oxygen Saturation 89 % (95-98); ABG PCO2 59 mmHg (35-45); ABG PH 7.38 pH Units (7.32-7.45); ABG PO2 60 mmHg (85-104); ABG TCO2 36 mEq/L (20-26); Blood Gas VT 350 cc
[2021-01-03] MEDS: Norepinephrine 4 MG/254 ML IV.SOLN IVC SCH (06:14)
[2021-01-03] MEDS: Cisatracurium 200 MG in 0.9 % Sodium Chloride 180 ML IVC SCH (06:14)
[2021-01-03 07:56] VITALS: TEMP 96.7
[2021-01-03] MEDS: Chlorhexidine Rinse 15 ML MOUTHWASH MM SCH (08:39)
[2021-01-03] MEDS: Pantoprazole 40 MG VIAL IVP SCH (08:39)
[2021-01-03] MEDS: cefTRIAXone 1,000 MG in Water for inj. (sterile) 10 ML IVP SCH (08:39)
[2021-01-03] MEDS: Lacri-Lube 3.5 GM TUBE BOTH EYES SCH (08:40)
[2021-01-03] MEDS ORDERED: Haloperidol Oral Conc 10 MG/5 ML UDC PO PRN (08:44)
[2021-01-03] MEDS ORDERED: *HR* LORazepam 2 MG/ML VIAL IVP PRN ×2 (08:44→09:29)
[2021-01-03] MEDS ORDERED: Atropine 1% Opth Drops 100 DROP/5 ML BOTTLE SL PRN (08:44)
[2021-01-03] MEDS ORDERED: Ondansetron 4 MG/2 ML VIAL IVP PRN (08:44)
[2021-01-03] MEDS ORDERED: Glycopyrrolate 0.2 MG/ML VIAL IVP ONE (08:51)
[2021-01-03 09:16] VITALS: BP 155/93; PULSE 115; O2SAT 75
[2021-01-03] MEDS ORDERED: Haloperidol Lactate 5 MG/ML VIAL IVP PRN (09:41)
[2021-01-03] MEDS ORDERED: Clinimix E 5%-15% SOLUTION 2,000 ML with MVI, adult with vitamin K 10 ML IVC SCH (17:00)
[2021-01-04] MEDS ORDERED: Clinimix E 5%-15% SOLUTION 2,000 ML with MVI, adult with vitamin K 10 ML IVC SCH ×2 (17:00)
== END 2021-01-03 11:05 | disposition expired | DRG 137 ==
LOC: 2NNU → SUATTDRO 18:44 → 3BNU 12-11 14:05 → 2NENU 12-17 18:34 → ICNU 12-29 10:52
PROVIDERS: ADMIT Internal Medicine; ATTEND Internal Medicine